=== PATIENT | female | born 1930 | race Caucasian/White ===

== ENCOUNTER → 2016-12-10 | Outpatient (RCR) | payer OTHER ==
[~2016-12-10] MED LIST: AMBIEN5 MG ORAL; AMITRIPTYLINE H25 MG ORAL; BACTRIM DS TAB1 EAC1 ORAL; BIOTIN 800 MCG1 EACH PO; CALCIUM + D SO1 EACH PO; LOSARTAN POTASS25 MG ORAL; PRAVASTATIN SOD20 M1 ORAL; PRILOSEC40 MG ORAL; SYNTHROID88 MCG ORAL
== END | disposition home or self-care (01) ==
LOC: PTY 09:45
DX: M75.111 Incomplete rotator cuff tear or rupture of right shoulder, not specified as traumatic (principal)
CPT/HCPCS: 97110; 97140; 97162; G0283

== ENCOUNTER 2016-12-13 09:20 | Outpatient (RCR) | payer OTHER | END 2017-01-10 | disposition home or self-care (01) | LOC: PTY 09:20 | DX: M75.111 Incomplete rotator cuff tear or rupture of right shoulder, not specified as traumatic (principal); Z88.8 Allergy status to other drugs, medicaments and biological substances | CPT/HCPCS: 97035; 97110; 97140; G0283 ==

== ENCOUNTER 2017-01-13 08:30 | Outpatient (RCR) | payer OTHER | END 2017-02-09 | disposition home or self-care (01) | LOC: PTY 08:30 | DX: M75.111 Incomplete rotator cuff tear or rupture of right shoulder, not specified as traumatic (principal) | CPT/HCPCS: 97035; 97110; 97140; G0283 ==

== ENCOUNTER 2017-02-10 13:00 | Outpatient (RCR) | payer OTHER | END 2017-03-12 | disposition home or self-care (01) | LOC: PTY 13:00 | DX: M75.111 Incomplete rotator cuff tear or rupture of right shoulder, not specified as traumatic (principal) | CPT/HCPCS: 97110; 97140; G0283 ==